=== PATIENT | female | born 1985 | race Caucasian/White ===

== ENCOUNTER 2017-01-03 16:57 | Emergency (ER) | payer OTHER ==
[2017-01-03] MEDS ORDERED: Acetaminophen 500 MG TAB ONE (17:19)
[2017-01-03 17:48] LABS: Anion Gap 13 mmol/L (10-20); BUN (Urea Nitrogen) 8 mg/dL (7.0-18.7); Calc. Creatinine Clearance 0 mL/min (70-130); Calcium 9.1 mg/dL (7.8-10.44); Carbon Dioxide 23 mmol/L (22-29); Chloride 105 mmol/L (98-107); Estimated GFR-MDRD Greater than 90; Magnesium 1.8 mg/dL (1.6-2.6)
--- NOTE | 2017-01-03 19:36 | ULT ---
BILATERAL LOWER EXTREMITY VENOUS DUPLEX EXAM: 01/03/17 HISTORY: Bilateral lower leg pain. Real time color doppler evaluation in the right and left lower extremities was performed from groin to calf. This included evaluation of the common femoral, superficial, and profunda femoral, saphenou s, popliteal, and trifurcation veins. This shows a patent deep venous systems bilaterally. There is normal compressibility and augmentation. There is no evidence of DVT. IMPRESSION: No evidence of DVT of either lower extremity. POS: [facility]
== END 2017-01-03 18:57 | disposition home or self-care (01) ==
LOC: SCSER 16:57
DX: O99.89 Other specified diseases and conditions complicating pregnancy, childbirth and the puerperium (principal); M79.652 Pain in left thigh; M79.651 Pain in right thigh; M79.605 Pain in left leg; M79.604 Pain in right leg; O99.342 Other mental disorders complicating pregnancy, second trimester; F41.9 Anxiety disorder, unspecified; F32.9 Major depressive disorder, single episode, unspecified; M19.90 Unspecified osteoarthritis, unspecified site; Z3A.16 16 weeks gestation of pregnancy
CPT/HCPCS: 80048; 83735; 85652; 86140; 93970

== ENCOUNTER 2017-01-10 10:24 | Outpatient (CLI) | payer OTHER ==
--- NOTE | 2017-01-10 15:04 | ULT ---
OB ULTRASOUND: Date: 01/10/17 HISTORY: patient. Evaluate for size and dates. COMPARISON: None. TECHNIQUE: Sagittal and transverse imaging of gravid uterus performed. FINDINGS: There is a posterior placenta. On the initial images, there appears to be complete previa with the p lacenta obscuring the inner cervical os. As the patient's bladder continues to distend, while perfor tonie the study, the placenta does not appear to completely cover the os and appears to be a marginal to low-lying placenta. Given variation, continued surveillance is warranted and strongly recommende d with short-term follow-up imaging. Cervical length is 3.85 cm. Single intrauterine gestation with transverse presentation. There are heart tones with a rate of 143 beats/minute. Biometry: BPD: 3.85 cm, 17 weeks/5 days HC: 14.58 cm, 17 weeks/5 days AC: 12.66 cm, 18 weeks/2 days FL: 2.56 cm, 19 weeks/5 days Average age by sonography is 17 weeks/5 days. Estimated weight is 219 gm. Survey: The following structures are adequately demonstrated: Cord insertion, three vessel cord, bladder, c erebellum, lateral ventricle, and stomach. Limited evaluation of the kidneys, spine, lips/nose, and extremities. IMPRESSION: 1. Single intrauterine gestation with heart tones. Average age by sonography is 17 weeks/5 da ys with estimated weight of 219 gm. 2. Complete previa in the initial portion of the examination. As urinary bladder distended, the sanjay centa appears to be marginal to low lying. Given variation in placental location, continued surveill ance with short-term follow-up imaging is recommended. 3. survey as above. CODE T. POS: [facility]
== END 2017-01-10 10:25 | disposition home or self-care (01) ==
LOC: ULT 10:24
PROVIDERS: ATTEND Family Medicine
DX: Z33.1 Pregnant state, incidental (principal); N32.89 Other specified disorders of bladder
CPT/HCPCS: 76805

== ENCOUNTER 2017-02-14 09:47 | Outpatient (CLI) | payer OTHER ==
--- NOTE | 2017-02-14 12:47 | ULT ---
ULTRASOUND OBSTETRICAL COMPLETE: DATE: 02-14-17 HISTORY: 31-year-old female in 2nd trimester of . Follow up low lying placenta or placenta previa. COMPARISON: Ultrasound, 01-10-17. FINDINGS: number: Gray lie: Cephalic Maternal cervix: At least 3.5 cm long and closed Placenta: Posterior and low lying. No placenta previa. Amniotic fluid volume: 15.5 cm heart rate: 141 bpm The following anatomy is visualized, with no evidence of anomalies: Bladder, bilateral kidneys, lateral ventricles, cerebellum, stomach, cord insertion, posterior fossa, and nose and lips. The rest of the anatomy was demonstrated on the previous ultrasound of 01-10-17. biometry: Head circumference (HC): 20.0 cm 22 w 1 d Biparietal diameter (BPD): 5.3 cm 22 w 0 d Abdominal circumference (AC): 18.9 cm 23 w 4 d Femur length (FL): 4.0 cm 23 w 0 d Average ultrasound age (AUA): 22 w 3 d Estimated date of delivery (MAYRA): 06-17-17 Last menstrual period (LMP): 17 Gestational age by LMP: 22 w 6 d Estimated weight (EFW): 569g +/- 84g (1 lb. 4 oz. +/- 3 oz.) IMPRESSION: 1. Live late second trimester intrauterine gestation. 2. Estimated gestational age of 22 weeks, 3 days. 3. Cephalic lie. 4. No placenta previa. TASHI Veliz POS: [facility]
== END 2017-02-14 09:48 | disposition home or self-care (01) ==
LOC: ULT 09:47
PROVIDERS: ATTEND Family Medicine
DX: Z33.1 Pregnant state, incidental (principal); Z3A.22 22 weeks gestation of pregnancy; O32.9XX0 Maternal care for malpresentation of fetus, unspecified, not applicable or unspecified
CPT/HCPCS: 76805

== ENCOUNTER 2017-05-31 19:30 | Day surgery (SDC) | payer OTHER ==
[2017-05-31 20:01] VITALS: BMI 36.6
--- NOTE | 2017-06-01 06:49 | PRG ---
DATE OF SERVICE: 05/31/2017 PRIMARY RAILROAD POLICE: Dr. Roxie Hernandez. CHIEF COMPLAINT: Abdominal pain. HISTORY OF PRESENT ILLNESS: The patient is a 32-year-old female with an intrauterine at 37 weeks and 4 days, who reports abdominal pains over the last 24 hours with increasing intensity over the last couple hours, occurring about every 5 minutes. Patient denies any leaking fluid. She does report she had a little bit of bloody show yesterday and has had some diarrhea. She denies any recent illness or fever. She does report a cough at home over the last couple days with her and her daughter. The patient reports that her last ended in a successful vaginal at around 39 weeks. She reports that she was last seen by Dr. Hernandez on Friday and was 1 cm dilated, 40% efface d. PAST MEDICAL HISTORY: Significant for history of neurocardiogenic syncope that has been dormant or w ithout symptoms for the last several years and unexplained infertility. PAST SURGICAL HISTORY: Cholecystectomy and tubes placed and adenoids removed at age 7. SOCIAL HISTORY: Denies drug, alcohol, or tobacco use. She is a hardware engineer here in the community. ALLERGIES: No known drug allergies. MEDICATIONS: vitamins. OB LABS: One hour Glucola 115. Hepatitis B surface antigen negative. HIV nonreactive in the first and third trimester. She is rubella immune, GBS negative. Blood type is A positive with a negative antibody screen. REVIEW OF SYSTEMS: The patient denies fever, headache, chest pain, shortness of breath, reports some minimal nausea. Denies vomiting. Reports cough. Reports diarrhea. Denies constipation, denies ne w rash. Denies leaking fluid. Denies urinary urgency or frequency. She reports a pain in her lower back with her contractions and some in her upper abdomen. She does report some baseline abdominal p ain consistent with ligament pain, but is able to distinguish that from her uterine contractions. PHYSICAL EXAMINATION: VITAL SIGNS: Blood pressure is 132/82, heart rate of 85, respiratory 18, and temperature 98.1. GENERAL: She appears to be tearful at first encounter. When asked what the matter was she reported that she was frustrated that she was not further along then she had hoped. She otherwise in no acute distress. She is alert and oriented, cooperative, pleasant to interact with. HEENT: Normocephalic, atraumatic. LUNGS: Clear to auscultation bilaterally. HEART: Regular rate and rhythm. ABDOMEN: Soft. She does have some tenderness to deviation of the uterus in the upper right region o f the abdomen and the region or the cornua of the uterus which is mild. Otherwise abdomen soft. No suprapubic tenderness to palpation. No CVA tenderness. No paravertebral tenderness, no vertebral te nderness. EXTREMITIES: Nontender, nonedematous. Cervical exam per nursing staff is 1.5 cm with 40% effacement, -2 station. heart tracing perfo rmed for abdominal pain and a threatened labor. Baseline is noted to be in the 140s with moderate lo ng-term variability, positive accelerations, no decelerations. The tocometer has some irritability, but unable to product picker significant contraction pattern. ASSESSMENT AND PLAN: The patient is a 32-year-old female with an intrauterine at 37 weeks and 4 days with uterine contractions without labor. The patient was given the option to remain for a couple of hours to be rechecked or to return home with reassurance that her baby is looking go od at this time to monitor progress of her labor on her own. The patient has opted to return home. She has been given term labor precautions and will keep her appointment with Dr. Hernadnez as scheduled.
== END 2017-05-31 20:50 | disposition home or self-care (01) ==
LOC: L&D/OP 19:30
PROVIDERS: ATTEND Family Medicine
DX: O47.1 False labor at or after 37 completed weeks of gestation (principal); Z79.899 Other long term (current) drug therapy; Z3A.37 37 weeks gestation of pregnancy; Z86.32 Personal history of gestational diabetes
CPT/HCPCS: 99282

== ENCOUNTER 2017-06-11 20:40 | Inpatient (IN) | payer OTHER ==
[2017-06-11 21:24] VITALS: BMI 36.6
[2017-06-11] MEDS ORDERED: LR / Pitocin 40 units/1000 ml 1,000 ML IV PRN (21:30)
[2017-06-11] MEDS ORDERED: Lidocaine 1% (PF) 30 ML VIAL SC PRN (21:30)
[2017-06-11] MEDS ORDERED: Meperidine HCl/PF 25 MG/ML VIAL IM/IV PRN (21:30)
[2017-06-11] MEDS ORDERED: HYDROcodone/Acetaminophen 5/325 mg Tablet PO PRN (21:30)
[2017-06-11] MEDS ORDERED: Promethazine HCl 25 MG/ML VIAL IM PRN (21:30)
[2017-06-11] MEDS ORDERED: Acetaminophen 500 MG TAB PO PRN (21:30)
[2017-06-11] MEDS ORDERED: Ibuprofen 800 MG TAB PO PRN (21:30)
[2017-06-11] MEDS ORDERED: Ondansetron HCl/PF 4 MG/2 ML Vial IVP PRN (21:30)
[2017-06-11 21:52] LABS: Hemoglobin 12.3 g/dL (12.0-16.0); Mean Corpuscular HGB CONC 33.5 g/dL (32.0-36.0); Mean Corpuscular Hemoglobin 27.6 pg (27.0-31.0); Mean Corpuscular Volume 82.3 fl (81.0-99.0); Mean Platelet Volume 7.7 fL (7.4-10.4); Platelet Count 344 thou/uL (130-400); RBC Distribution Width 12.4 % (11.5-14.5); Red Blood Cell (RBC) Count 4.46 mill/uL (4.20-5.40); White Blood Cell (WBC) Count 12.1 thou/uL (4.8-10.8)
[2017-06-11 22:30] LABS: Syphilis Antibody Nonreactive (Nonreactive); Syphilis Antibody Index 0.04 S/CO (<1.00 Non-Reactive)
[2017-06-12 00:16] LABS: HBSAg Index 0.17 S/CO (0-0.99); Hep B Surf Ag Non-Reactive S/CO (NonReactive)
[2017-06-12] MEDS ORDERED: Diprivan 0 ML ONE (09:00)
[2017-06-12] MEDS ORDERED: LR 500 ML/Oxytocin 10 units 500 ML IVPB SCH (18:00)
[2017-06-12] MEDS ORDERED: Preparation H Ointment 28 GM TUBE PR PRN (21:22)
[2017-06-12] MEDS ORDERED: LR / Pitocin 40 units/1000 ml 1,000 ML IV SCH (21:22)
[2017-06-12] MEDS ORDERED: Lanolin Ointment 7 GM TUBE TOP PRN (21:22)
[2017-06-12] MEDS ORDERED: Milk Of Magnesia 30 ML UDCUP PO PRN (21:22)
[2017-06-12] MEDS ORDERED: Benzocaine/Menthol 20-0.5% 60 ML CAN TOP PRN (21:22)
[2017-06-12] MEDS ORDERED: Bisacodyl 10 MG SUPP PR PRN (21:22)
[2017-06-12] MEDS ORDERED: Acetaminophen 500 MG TAB PO PRN (22:06)
[2017-06-12] MEDS: HYDROcodone/Acetaminophen 5/325 mg Tablet PO PRN (22:27)
[2017-06-13] MEDS: Ibuprofen 800 MG TAB PO SCH ×3 (00:21→14:13)
[2017-06-13] MEDS: Docusate Calcium (SURFAK) 240 MG CAP PO SCH ×2 (00:21→08:40)
--- NOTE | 2017-06-13 01:22 | OP ---
DATE OF DELIVERY: 06/12/2017 PREOPERATIVE DIAGNOSIS: Term intrauterine . POSTOPERATIVE DIAGNOSES: Term intrauterine as well as mild shoulder dystocia and a first d egree perineal laceration. PROCEDURE PERFORMED: Normal spontaneous vaginal delivery, reduction of shoulder dystocia and lacerat ion repair. SURGEON: Roxie Hernandez M.D. ANESTHESIA: Local. ESTIMATED BLOOD LOSS: 350 mL. BRIEF DELIVERY SUMMARY: This is a 32-year-old G4, P1-0-2-1 at 39+ weeks. She presented for inductio n of labor, which was accomplished through a Cook's balloon and artificial rupture of membranes. She did not receive Pitocin during labor. She progressed to complete and pushing. She delivered a live male infant, head RICH. There was no nuchal cord. She did have a mild shoulder dystocia, which was relieved with [place] maneuver. The shoulders and body then easily followed and the infant was sanjay john on mother's abdomen. Apgars were 9 at 1 minute and 9 at 5 minutes. Cord blood was collec diego and sent for analysis. Placenta delivered spontaneously and intact with a 3-vessel umbilical cor d. There was a first degree perineal laceration, which was repaired in standard running fashion usin g 2-0 Vicryl suture under local anesthesia with excellent hemostasis. Mom and baby were left with e nurse in excellent condition attempting to breast feed.
[2017-06-13] MEDS: HYDROcodone/Acetaminophen 5/325 mg Tablet PO PRN ×2 (02:22→08:40)
--- NOTE | 2017-06-13 07:22 | PDOC.PP ---
Post Progress Note Post Day #: 1 Subjective: Feeling well, no pain, BF well, lochia normal PO intake tolerated: yes Flatus: yes Ambulation: yes Vital Signs (12 hours) Temp Pulse Resp BP 06/13/17 04:00 98.7 F 76 16 125/62 06/13/17 00:00 97.7 F 94 16 132/77 06/12/17 22:25 76 140/73 06/12/17 21:25 97.7 F 85 18 132/76 Weight Weight 220 lb - Physical Examination General: NAD Cardiovascular: no m/r/g, RRR Respiratory: clear to auscultation bilaterally, non-labored breathing Abdominal: + bowel sounds, lochia, no distention, appropriately TTP Psychiatric: A&Ox3, normal affect Result Diagrams: 06/11/17 21:30 Additional Labs: Post Labs Hep Bs Antigen Non-Reactive S/CO (NonReactive) 06/11/17 21:30 (1) Vaginal delivery Code(s): O80 - ENCOUNTER FOR FULL-TERM UNCOMPLICATED DELIVERY Status: Acute - Assessment/Plan PPD #1, doing well. Routine PP care. D/C home at 24 hours post-delivery
[2017-06-13] MEDS: Ferrous Sulfate 325 MG TAB PO SCH ×2 (08:39→17:15)
[2017-06-13 17:29] VITALS: BP 117/56; TEMP 98.1
== END 2017-06-13 19:40 | disposition home or self-care (01) | DRG 775 ==
LOC: L&D 20:40 → L&D-LIB 21:09 → L&D 06-12 10:00 → 3SW 06-12 22:04
PROVIDERS: ADMIT Family Medicine; ATTEND Family Medicine
PROC: 10E0XZZ Delivery of Products of Conception, External Approach (ICD-10-PCS; principal; 2017-06-12)
PROC: 0HQ9XZZ Repair Perineum Skin, External Approach (ICD-10-PCS; 2017-06-12)
PROC: 10907ZC Drainage of Amniotic Fluid, Therapeutic from Products of Conception, Via Natural or Artificial Opening (ICD-10-PCS; 2017-06-12)
DX: O70.0 First degree perineal laceration during delivery (principal); O77.0 Labor and delivery complicated by meconium in amniotic fluid; Z37.0 Single live birth; Z3A.39 39 weeks gestation of pregnancy
CPT/HCPCS: 85027; 86780; 87340; C1726; J2001; J2704

== ENCOUNTER 2019-06-09 20:02 | Inpatient (IN) | payer BC, OTHER ==
--- NOTE | 2019-06-09 20:48 | RAD ---
RADIOGRAPH CHEST 1 VIEW: DATE: 06/09/2019 HISTORY: 34 year old female with cough, dyspnea, and body aches FINDINGS: The visualized lung dias are clear. The cardiomediastinal silhouette and hilar shadows are normal. The lateral costophrenic angles are sharp. The osseous structures appear normal. There is no pneumothorax. IMPRESSION: Negative.
[2019-06-09 21:04] LABS: Mean Corpuscular HGB CONC 34.3 g/dL (32.0-36.0); Mean Corpuscular Hemoglobin 29.8 pg (27.0-31.0); Mean Corpuscular Volume 86.9 fL (78.0-98.0); Mean Platelet Volume 8.2 fL (7.4-10.4); Platelet Count 301 thou/uL (130-400); RBC Distribution Width 11.7 % (11.5-14.5); Red Blood Cell (RBC) Count 5.04 mill/uL (4.20-5.40); White Blood Cell (WBC) Count 14.3 thou/uL (4.8-10.8)
[2019-06-09 21:24] LABS: Band 4 % (5-11); Lymphocytes 8 % (21-51); MDiff Complete? YES; Monocytes 3 % (0-10); Neutrophil 85 % (42-75); Platelet Morphology Comment Appears Adequate; RBC Morphology Normal
[2019-06-09 21:26] LABS: ALT (SGPT) 57 U/L (8-55); AST (SGOT) 52 U/L (5-34); Albumin 4.3 g/dL (3.5-5.0); Alkaline Phosphatase 109 U/L (40-110); Anion Gap 13 mmol/L (10-20); BUN (Urea Nitrogen) 15 mg/dL (7.0-18.7); Bilirubin, Total 0.4 mg/dL (0.2-1.2); Calc. Creatinine Clearance 0 mL/min (70-130); Carbon Dioxide 22 mmol/L (22-29); Chloride 104 mmol/L (98-107); Estimated GFR-MDRD 71; Globulin 3.1 g/dL (2.4-3.5); Glucose 97 mg/dL (70-105); Protein, Total 7.4 g/dL (6.0-8.3); Sodium 135 mmol/L (136-145)
[2019-06-09 22:03] LABS: BHCG - Serum Negative (NEGATIVE); Pregs Control Background? CLEAR/WHITE (CLR/WHITE); Pregs Control Bar Appear? YES (CONTROL BAR)
[2019-06-09] MEDS ORDERED: Acetaminophen 500 MG TAB ONE (22:06)
[2019-06-09] MEDS ORDERED: Morphine 4 MG/ML VIAL ONE (22:06)
[2019-06-09] MEDS ORDERED: cefTRIAXone\\ROCEPHIN 2 GM VIAL ONE (22:06)
[2019-06-09] MEDS ORDERED: Azithromycin 500 MG VIAL ONE (22:08)
[2019-06-09] MEDS ORDERED: diphenhydrAMINE 50 MG/ML VIAL ONE (22:51)
[2019-06-09] MEDS ORDERED: Ondansetron PF 4 MG/2 ML Vial ONE (22:51)
[2019-06-09 23:01] LABS: Bilirubin Negative (Negative); Blood, Urine Negative (Negative); Clarity Clear (Clear); Glucose, Urine (Dipstick) Normal (Negative); Leukocyte Negative Leu/uL (Negative); Nitrite Negative (Negative); Protein, Urine (Dipstick) Negative (Neg-Trace); Urobilinogen Normal mg/dL (Less than 2)
[2019-06-09] MEDS ORDERED: Lorazepam 2 MG/ML VIAL ONE (23:08)
[2019-06-10] MEDS ORDERED: Senokot S 8.6-50 MG TAB PO PRN (00:31)
[2019-06-10] MEDS ORDERED: Azithromycin 500 MG in Sodium Chloride 0.9% 250 ML 250 ML IVPB SCH ×2 (00:45→12:00)
[2019-06-10] MEDS ORDERED: cefTRIAXone\\ROCEPHIN 1 GM in Sodium Chloride 0.9% 100 ML IVPB SCH ×2 (00:45→12:00)
[2019-06-10 00:53] LABS: Lactic Acid 1.9 mmol/L (0.5-2.2)
[2019-06-10 01:02] VITALS: BMI 35.7
[2019-06-10] MEDS ORDERED: Famotidine/PF 20 mg/2ml Vial SLOW IVP SCH (02:00)
[2019-06-10] MEDS: Sodium Chloride 0.9% 1,000 ML IV SCH ×3 (02:02→20:14)
--- NOTE | 2019-06-10 03:53 | HP ---
CHIEF COMPLAINT: Body aches and pains and fever. HISTORY OF PRESENT ILLNESS: The patient is a 34-year-old female with no past medical history, who presents to the hospital with complaints of a fever of 104.4, joint pains, cough, and chills x1 day. The patient stated that for the past couple of days, she has been running a low-grade fever and has been having a headache. She stated that about a week ago, she took her 2-year-old and 4-year-old to the PCPs office because they had some rhinorrhea and were diagnosed with some just upper respiratory infection. The patient states that she denies any abdominal pain, nausea, vomiting, or diarrhea. She denies any sick contacts either. She is a stay at home mom. Her does work for the oil field and has not traveled anywhere, except just going to work. According to her, she denies him being in contact with any sick patients or sick employees. PAST MEDICAL HISTORY: None. PAST SURGICAL HISTORY: She has had a cholecystectomy and adenoids removed. ALLERGIES: NO KNOWN DRUG ALLERGIES. MEDICATIONS: She only takes a multivitamin and vitamin C. SOCIAL HISTORY: She denies any alcohol use, drug use, or smoking history. She is a full code. Lives with her . FAMILY HISTORY: Her father was murdered. Her mother has a history of thyroid problems. REVIEW OF SYSTEMS: All negative, except for the ones mentioned above in the HPI. PHYSICAL EXAMINATION: VITAL SIGNS: As of the following; temperature of 97.6, pulse 112, respiratory rate 24, oxygen saturation 98% on room air and blood pressure 100/55. GENERAL: She is awake, alert, and oriented x3. Does not appear in distress, however, appears ill. CARDIOVASCULAR: S1, S2 present. Tachycardia. LUNGS: Clear to auscultation. No rhonchi or wheezes noted. ABDOMEN: Soft. Mild pain upon palpation to epigastric area, right upper quadrant and left upper quadrant. EXTREMITIES: No edema. Pedal pulses are present x2. NEUROVASCULAR: No focal deficits noted. SKIN: No cuts, lesions, or bruises noted. LABORATORY RESULTS: WBCs of 14.3, hemoglobin of 15.0, hematocrit of 43.8, platelets of 301, bands of 4. Chemistry; sodium of 135, potassium of 4.0, BUN of 15, creatinine 0.92, AST of 52, ALT of 57. Initial lactate was 2.4 and then was 1.0. test was negative. Urine test also negative. She did have a chest x-ray, which did not indicate any acute abnormalities. ASSESSMENT AND PLAN: The patient is a very pleasant 34-year-old female, who presents to the hospital with fevers, body aches and pains. 1. Sepsis, however, unclear etiology at this time. It could be viral versus bacterial. Given her symptoms, she was tested for COVID. Initially influenza was negative. We will go ahead and do a respiratory viral panel, which also indicates human metapneumovirus. I do not think this is a COVID patient. We will start the patient on some antibiotics with some Levaquin; however, I do not think she really requires that. She was given azithromycin and ceftriaxone in the ER. She was given a couple liters of normal saline for tachycardia and for elevation of lactic acid. Her tachycardia is improving. 2. Elevated LFTs, mild. She is obese. We will check hepatitis panel. She may require a right upper quadrant ultrasound if her LFTs do not improve. 3. Sinus tachycardia. Again, this is most likely from her fever and her underlying viral pneumonia. We will continue supportive care. 4. Deep venous thrombosis prophylaxis. We will put the patient on some SCDs. Job ID: [id number]
[2019-06-10 04:32] LABS: Hemoglobin 13.3 g/dL (12.0-16.0); Mean Corpuscular HGB CONC 34.5 g/dL (32.0-36.0); Mean Corpuscular Hemoglobin 30.5 pg (27.0-31.0); Mean Corpuscular Volume 88.4 fL (78.0-98.0); Mean Platelet Volume 8.3 fL (7.4-10.4); Platelet Count 229 thou/uL (130-400); RBC Distribution Width 11.8 % (11.5-14.5); Red Blood Cell (RBC) Count 4.36 mill/uL (4.20-5.40); White Blood Cell (WBC) Count 17.6 thou/uL (4.8-10.8)
[2019-06-10 04:56] LABS: ALT (SGPT) 61 U/L (8-55); AST (SGOT) 45 U/L (5-34); Albumin 3.2 g/dL (3.5-5.0); Alkaline Phosphatase 78 U/L (40-110); Anion Gap 12 mmol/L (10-20); BUN (Urea Nitrogen) 10 mg/dL (7.0-18.7); Bilirubin, Total 0.6 mg/dL (0.2-1.2); Calc. Creatinine Clearance 164 mL/min (70-130); Calcium 7.4 mg/dL (7.8-10.44); Carbon Dioxide 19 mmol/L (22-29); Chloride 110 mmol/L (98-107); Estimated GFR-MDRD 86; Globulin 2.2 g/dL (2.4-3.5); Glucose 116 mg/dL (70-105); Protein, Total 5.4 g/dL (6.0-8.3); Sodium 137 mmol/L (136-145)
[2019-06-10 05:04] LABS: Band 11 % (5-11); Lymphocytes 6 % (21-51); MDiff Complete? YES; Monocytes 4 % (0-10); Neutrophil 79 % (42-75); Platelet Morphology Comment Appears Adequate; RBC Morphology Normal
[2019-06-10 05:09] LABS: HBCM Index 0.06 S/CO (0-0.79); HBSAg Index 0.27 S/CO (0-0.99); Hep A IgM AB Non-Reactive (NonReactive); Hep A IgM S/CO 0.21 S/CO (0-0.79); Hep B Surf Ag Non-Reactive S/CO (NonReactive); Hep C IgG Ab Non-Reactive (NonReactive); Hep C Index 0.16 S/CO (0-0.79); Hepatitis B Core IgM Abs Non-Reactive (NonReactive)
[2019-06-10] MEDS: Acetaminophen 325 MG TAB PO PRN ×2 (08:55→16:12)
[2019-06-10] MEDS: Benzonatate 100 MG CAP PO PRN ×3 (08:56→16:12)
[2019-06-10] MEDS: guaiFENesin ER 600 MG TAB PO SCH ×2 (08:56→20:12)
[2019-06-10] MEDS: Famotidine/PF 20 mg/2ml Vial SLOW IVP SCH ×2 (08:56→20:12)
[2019-06-10] MEDS: Enoxaparin Sodium 40 MG/0.4 ML SYRINGE SC SCH ×2 (08:56→09:01)
[2019-06-10] MEDS ORDERED: Ibuprofen 600 MG TAB PO PRN (11:08)
--- NOTE | 2019-06-10 11:16 | PDOC.HOSPP ---
- Subjective Encounter Date: 06/10/19 Encounter Time: 11:14 Subjective: Ms. Perez was seen today in follow-up of Viral syndrome with sepsis. She notes some body aches, and she feels out of breath with she talks for a long period of time. She does not appear toxic. - Objective Vital Signs & Weight: Vital Signs (12 hours) Temp Pulse Resp BP BP Pulse Ox 06/10/19 07:30 97.1 F L 93 18 115/60 96 06/10/19 04:05 97.9 F 99 20 115/68 99 06/10/19 02:50 98 06/10/19 00:57 97.6 F 112 H 24 H 100/55 L 98 Weight Weight 221 lb 9.6 oz Result Diagrams: 06/10/19 04:15 06/10/19 04:15 Hospitalist ROS - Medication Medications: Active Medications Generic Name Dose Route Start Last Admin Trade Name Freq PRN Reason Stop Dose Admin Acetaminophen 650 mg 06/10/19 00:31 06/10/19 08:55 Tylenol PO 650 mg Q4H PRN Administration Headache/Fever/Mild Pain (1-3) Benzonatate 100 mg 06/10/19 07:51 06/10/19 08:56 Tessalon PO 100 mg Q4H PRN Administration Cough Enoxaparin Sodium 40 mg 06/10/19 09:00 06/10/19 09:01 Lovenox SC Not Given 0900 CHUCK Famotidine 20 mg 06/10/19 09:00 06/10/19 08:56 Pepcid SLOW IVP 20 mg BID CHUCK Administration Guaifenesin 600 mg 06/10/19 09:00 06/10/19 08:56 Mucinex PO 600 mg Q12HR CHUCK Administration Sodium Chloride 1,000 mls @ 100 mls/hr 06/10/19 00:45 06/10/19 08:57 Normal Saline 0.9% IV 1,000 mls .Q10H CHUCK Administration Sodium Chloride 10 ml 06/10/19 09:00 06/10/19 08:56 Flush - Normal Saline IVF 10 ml Q12HR CHUCK Administration - Exam General Appearance: NAD Heart: RRR, no murmur, no gallops, no rubs, normal peripheral pulses Respiratory: CTAB, no wheezes, no rales, no ronchi, normal chest expansion, no tachypnea Gastrointestinal: soft, non-tender, non-distended, normal bowel sounds, no palpable masses, no hepatomegaly Extremities: no cyanosis, no edema Hosp A/P (1) Viral syndrome Status: Acute (2) Sepsis Code(s): A41.9 - SEPSIS, UNSPECIFIED ORGANISM Status: Acute - Plan * Viral Syndrome- her viral panel is positive for Human Metapneumovirus * This is likely the cuase of her symptoms * COVID screen is still pending * Will also await blood culture results for bacterial pathogens, given her elevated WBC count * Continue empiric Levaquin * Re-check CBC in the AM
[2019-06-10] MEDS ORDERED: traMADol HCl 50 MG TAB PO PRN (16:40)
--- NOTE | 2019-06-10 16:47 | PDOC.EVN ---
Event Note - Event Note Event Note: Ms. Perez notes swelling and pain in her left breast. She says she also notes redness as well. This started today. She is currently lactating, and says that her son normally takes the breast about twice a day. She fed him last night around 6pm before coming to the hospital. She pumped this afternoon, and expressed about 2 oz. She says the pain has continued despite pumping. On exam the left breast is swollen , and there is an oval area approximately 3 X 5 cm on the medical aspect which is erythematous, and firm, but not fluctuant Probable Mastitis- will add Clindamycin and re-evaluate in the AM, if the area persists in firmness/induration, may need an ultrasound to rule out abscess. This could be contributing to her fever, and sepsis picture as well.
[2019-06-10] MEDS ORDERED: Saccharomyces boulardii 250 MG CAP PO SCH (17:15)
[2019-06-10] MEDS: Clindamycin/D5W 600 MG in Premix Bag 1 BAG IVPB SCH ×2 (18:37→23:58)
[2019-06-10] MEDS: Temazepam 15 MG CAP PO PRN (20:12)
[2019-06-10] MEDS: Ondansetron PF 4 MG/2 ML Vial IVP PRN (20:12)
[2019-06-10] MEDS ORDERED: diphenhydrAMINE 25 MG CAP PO SCH (23:30)
[2019-06-11 04:29] LABS: #Eosinphils 0.4 thou/uL (0.0-0.7); #Lymphocytes 2.9 thou/uL (1.20-3.40); #Monocytes 0.9 thou/uL (0.11-0.59); %Basophils 0.3 % (0.0-1.0); %Eosinophils 2.8 % (0.0-10.0); %Lymphocytes 18.8 % (21.0-51.0); %Monocytes 5.8 % (0.0-10.0); %Neutrophils 72.4 % (42.0-75.0); Mean Corpuscular HGB CONC 33.7 g/dL (32.0-36.0); Mean Corpuscular Hemoglobin 30.1 pg (27.0-31.0); Mean Corpuscular Volume 89.3 fL (78.0-98.0); Platelet Count 250 thou/uL (130-400); RBC Distribution Width 11.9 % (11.5-14.5); Red Blood Cell (RBC) Count 4.32 mill/uL (4.20-5.40); White Blood Cell (WBC) Count 15.2 thou/uL (4.8-10.8)
[2019-06-11] MEDS: Clindamycin/D5W 600 MG in Premix Bag 1 BAG IVPB SCH ×4 (05:13→23:28)
[2019-06-11] MEDS: Sodium Chloride 0.9% 1,000 ML IV SCH ×3 (05:15→23:29)
[2019-06-11] MEDS: Enoxaparin Sodium 40 MG/0.4 ML SYRINGE SC SCH (09:46)
[2019-06-11] MEDS: Famotidine/PF 20 mg/2ml Vial SLOW IVP SCH ×2 (09:47→20:47)
[2019-06-11] MEDS: guaiFENesin ER 600 MG TAB PO SCH ×2 (09:47→20:47)
[2019-06-11] MEDS: Saccharomyces boulardii 250 MG CAP PO SCH (09:47)
[2019-06-11] MEDS: Acetaminophen 325 MG TAB PO PRN (09:47)
--- NOTE | 2019-06-11 10:30 | PDOC.HOSPP ---
- Subjective Encounter Date: 06/11/19 Encounter Time: 10:28 Subjective: Ms. Perez is overall feeling better, but she notes continued pain in the left breast. She says now she is having trouble expressing milk from the breast. - Objective Vital Signs & Weight: Vital Signs (12 hours) Temp Pulse Resp BP Pulse Ox 06/11/19 04:00 98.5 F 96 18 114/58 L 97 Weight Weight 221 lb 9.6 oz Result Diagrams: 06/11/19 04:10 06/10/19 04:15 Hospitalist ROS - Medication Medications: Active Medications Generic Name Dose Route Start Last Admin Trade Name Freq PRN Reason Stop Dose Admin Acetaminophen 650 mg 06/10/19 00:31 06/11/19 09:47 Tylenol PO 650 mg Q4H PRN Administration Headache/Fever/Mild Pain (1-3) Benzonatate 100 mg 06/10/19 07:51 06/10/19 16:12 Tessalon PO 100 mg Q4H PRN Administration Cough Enoxaparin Sodium 40 mg 06/10/19 09:00 06/11/19 09:46 Lovenox SC Not Given 09 CHUCK Famotidine 20 mg 06/10/19 09:00 06/11/19 09:47 Pepcid SLOW IVP 20 mg BID CHUCK Administration Guaifenesin 600 mg 06/10/19 09:00 06/11/19 09:47 Mucinex PO 600 mg Q12HR CHUCK Administration Sodium Chloride 1,000 mls @ 100 mls/hr 06/10/19 00:45 06/11/19 05:15 Normal Saline 0.9% IV 1,000 mls .Q10H CHUCK Administration Levofloxacin 500 mg/ Device 100 mls @ 100 mls/hr 06/10/19 12:00 06/10/19 11: 40 IVPB 100 mls Q24HR CHUCK Administration Clindamycin Phosphate/Dextrose 50 mls @ 100 mls/hr 06/10/19 18:00 06/11/19 05 :13 600 mg/ Device IVPB 50 mls Q6HR CHUCK Administration Ibuprofen 600 mg 06/10/19 11:08 06/10/19 11:40 Motrin PO 600 mg Q6H PRN Administration Pain Ondansetron HCl 4 mg 06/10/19 00:31 06/10/19 20:12 Zofran IVP 4 mg Q6H PRN Administration Nausea/Vomiting Saccharomyces Boulardii 250 mg 06/11/19 09:00 06/11/19 09:47 Florastor PO 250 mg DAILY CHUCK Administration Sodium Chloride 10 ml 06/10/19 09:00 06/11/19 09:48 Flush - Normal Saline IVF 10 ml Q12HR CHUCK Administration Temazepam 15 mg 06/10/19 16:39 06/10/19 20:12 Restoril PO 15 mg HSPRN PRN Administration Insomnia Tramadol HCl 50 mg 06/10/19 16:40 06/10/19 18:36 Ultram PO 50 mg Q6H PRN Administration Moderate Pain (4-6) - Exam Eye: PERRL Heart: RRR, no murmur, no gallops, no rubs, normal peripheral pulses Respiratory: CTAB, no wheezes, no rales, no ronchi, normal chest expansion Gastrointestinal: soft, non-tender, non-distended, normal bowel sounds Extremities: no cyanosis, no clubbing, no edema Skin - other findings: Left breast is enlarged, area of erythema & induration has increased Hosp A/P (1) Mastitis, left, acute Code(s): N61.0 - MASTITIS WITHOUT ABSCESS Status: Acute (2) Viral syndrome Status: Acute (3) Sepsis Code(s): A41.9 - SEPSIS, UNSPECIFIED ORGANISM Status: Acute - Plan * Acute Mastitis of the left breast- will continue Clindamycin, and will check a Ultrasound to rule out abscess * Viral Syndrome- her viral panel is positive for Human Metapneumovirus and COVID -19 screen was negative * Sepsis syndrome is improving- and she can be transferred off telemetry * Further recommendations pending ultrasound results.
--- NOTE | 2019-06-11 11:30 | ULT ---
Sonogram left breast HISTORY: Left breast pain. Abscess. Breast-feeding. FINDINGS: Evaluation centered at the 10:00 position of the left breast shows dense fibroglandular tis is[place], consistent with . There is a large very irregular shaped area of decreased density with large fingerlike projections ex tending from the periphery. It measures up to 5.3 cm x 3.0 cm length and width by 2.4 cm depth. No solid masses are apparent. IMPRESSION : Large nonencapsulated abscess centered at the 10:00 position of the left breast.
--- NOTE | 2019-06-11 15:32 | PDOC.EVN ---
Event Note - Event Note Event Note: Ultrasound results noted- will consult General Surgery
--- NOTE | 2019-06-11 18:10 | CON ---
DATE OF CONSULTATION: 06/11/2019 CHIEF COMPLAINT: Left breast abscess. HISTORY OF PRESENT ILLNESS: This is a 34-year-old female, who presents with a history of fever and left breast pain, initially ruled out for COVID-19. Her fevers have resolved, admitted to the hospitalist service, on IV antibiotics. Ultrasound shows left breast abscess. She has never had this before. Her child is 2 years old and still . She notes no breakdown of the skin. No history of previous infection, mastitis or abscess. PAST MEDICAL HISTORY: Negative. PAST SURGICAL HISTORY: Cholecystectomy. MEDICATIONS: 1. Multivitamin. 2. Vitamin C. ALLERGIES: NO KNOWN DRUG ALLERGIES. SOCIAL HISTORY: No smoking, alcohol, or other drugs. REVIEW OF SYSTEMS: Ten-system review of systems is otherwise negative unless described above. PHYSICAL EXAMINATION: HEENT: Sclerae anicteric. Oropharynx clear. NECK: No lymphadenopathy. CHEST: Clear. HEART: Regular rate. ABDOMEN: Soft, nontender, and nondistended. BREASTS: Examination of breast reveals a left breast fluctuant mass. There is redness to the skin. There is mild axillary lymphadenopathy. DIAGNOSTIC DATA: Ultrasound shows left breast abscess. ASSESSMENT: Left breast abscess. PLAN: Incision and drainage of left breast in the operating room tomorrow. Risks, benefits, and alternatives discussed. She gives consent. We will do this tomorrow. Job ID: [id number]
[2019-06-11] MEDS: Temazepam 15 MG CAP PO PRN (20:54)
[2019-06-12] MEDS: Clindamycin/D5W 600 MG in Premix Bag 1 BAG IVPB SCH ×3 (05:55→18:20)
[2019-06-12] MEDS: guaiFENesin ER 600 MG TAB PO SCH ×2 (08:06→20:13)
[2019-06-12] MEDS: Saccharomyces boulardii 250 MG CAP PO SCH (08:06)
[2019-06-12] MEDS: Famotidine/PF 20 mg/2ml Vial SLOW IVP SCH ×2 (08:06→20:13)
[2019-06-12] MEDS ORDERED: Lidocaine 1% PF 5 ML VIAL ONE (09:59)
[2019-06-12] MEDS ORDERED: PROPOFOL 200 MG/20 ML VIAL ONE (09:59)
[2019-06-12] MEDS ORDERED: Bupivacaine 0.25% HCL 30 ML VIAL ONE (10:06)
[2019-06-12] MEDS ORDERED: Lidocaine 2% w/Epinephrine 1:200K 20 ML VIAL ONE (10:06)
[2019-06-12] MEDS ORDERED: Midazolam HCl 2 mg/2 ml Vial ONE (10:12)
[2019-06-12] MEDS ORDERED: Fentanyl 100 MCG/2 ML VIAL ONE ×2 (10:12→11:00)
[2019-06-12] MEDS ORDERED: Morphine 2 MG/ML SYRINGE SLOW IVP PRN (10:58)
[2019-06-12] MEDS ORDERED: HYDROcodone/Acetaminophen 7.5/325 mg Tablet PO PRN (10:58)
[2019-06-12] MEDS ORDERED: Morphine 4 MG/ML VIAL SLOW IVP PRN (10:58)
[2019-06-12] MEDS ORDERED: Ondansetron HCl/PF 4 MG/2 ML Vial IVP PRN (11:02)
[2019-06-12] MEDS ORDERED: Promethazine HCl 25 MG/ML VIAL IM PRN (11:02)
[2019-06-12] MEDS ORDERED: Promethazine HCl 25 MG/ML VIAL SLOW IVP PRN (11:02)
--- NOTE | 2019-06-12 11:09 | OP ---
DATE OF PROCEDURE: 06/12/2019 PREOPERATIVE DIAGNOSIS: Left breast abscess. POSTOPERATIVE DIAGNOSIS: Left breast abscess. PROCEDURES: Mastotomy. Incision and drainage of deep left breast abscess. ANESTHESIA: General. ESTIMATED BLOOD LOSS: Minimal. COMPLICATIONS: None. SPECIMEN: Cultures taken for anaerobes and aerobes. TECHNIQUE: The patient was taken to the operating room and laid supine on the operating room table. After general anesthetic was obtained, the left breast was prepped and draped in a sterile fashion. Local anesthetic infiltrated over the fluctuant portion. An elliptical incision was used to ellipse out some skin and subcutaneous fat. Abscess cavity was entered. Cultures were taken. The wound was irrigated and packed using half-inch iodoform gauze and sterile dressings. The patient was sent to Recovery in stable condition. All instrument counts, needle counts, and lap counts are correct. Job ID: [id number]
[2019-06-12] MEDS ORDERED: HYDROcodone/Acetaminophen 7.5/325 mg Tablet ONE (11:31)
[2019-06-12] MEDS: Sodium Chloride 0.9% 1,000 ML IV SCH (13:04)
[2019-06-12] MEDS: HYDROcodone/Acetaminophen 7.5/325 mg Tablet PO PRN (16:49)
--- NOTE | 2019-06-12 18:02 | PDOC.HOSPP ---
- Subjective Encounter Date: 06/12/19 Encounter Time: 16:00 Subjective: had I&D of left breast abscess this am mild pain in her breast, no sob is amb in room - Objective Vital Signs & Weight: Vital Signs (12 hours) Temp Pulse Resp BP Pulse Ox 06/12/19 16:00 97.4 F L 68 17 116/71 98 06/12/19 08:00 98 06/12/19 07:56 98.3 F 76 18 100/64 98 Weight Weight 221 lb 9.6 oz Result Diagrams: 06/11/19 04:10 06/10/19 04:15 Hospitalist ROS - Medication Medications: Active Medications Generic Name Dose Route Start Last Admin Trade Name Freq PRN Reason Stop Dose Admin Acetaminophen 650 mg 06/10/19 00:31 06/11/19 09:47 Tylenol PO 650 mg Q4H PRN Administration Headache/Fever/Mild Pain (1-3) Hydrocodone Bitart/Acetaminophen 1 tab 06/12/19 10:58 06/12/19 16:49 [place] 7.5/325 PO 1 tab Q6H PRN Administration Moderate Pain (4-6) Benzonatate 100 mg 06/10/19 07:51 06/10/19 16:12 Tessalon PO 100 mg Q4H PRN Administration Cough Famotidine 20 mg 06/10/19 09:00 06/12/19 08:06 Pepcid SLOW IVP 20 mg BID CHUCK Administration Guaifenesin 600 mg 06/10/19 09:00 06/12/19 08:06 Mucinex PO 600 mg Q12HR CHUCK Administration Sodium Chloride 1,000 mls @ 100 mls/hr 06/10/19 00:45 06/12/19 13:04 Normal Saline 0.9% IV 1,000 mls .Q10H CHUCK Administration Levofloxacin 500 mg/ Device 100 mls @ 100 mls/hr 06/10/19 12:00 06/12/19 13: 04 IVPB 100 mls Q24HR CHUCK Administration Clindamycin Phosphate/Dextrose 50 mls @ 100 mls/hr 06/10/19 18:00 06/12/19 13 :04 600 mg/ Device IVPB 50 mls Q6HR CHUCK Administration Ondansetron HCl 4 mg 06/10/19 00:31 06/10/19 20:12 Zofran IVP 4 mg Q6H PRN Administration Nausea/Vomiting Saccharomyces Boulardii 250 mg 06/11/19 09:00 06/12/19 08:06 Florastor PO 250 mg DAILY CHUCK Administration Sodium Chloride 10 ml 06/10/19 09:00 06/12/19 08:40 Flush - Normal Saline IVF Not Given Q12HR CHUCK Temazepam 15 mg 06/10/19 16:39 06/11/19 20:54 Restoril PO 15 mg HSPRN PRN Administration Insomnia - Exam General Appearance: awake alert Eye: PERRL, anicteric sclera ENT: no oropharyngeal lesions, moist mucosa Neck: supple, no JVD Heart: RRR, no murmur Respiratory: no wheezes, no rales Gastrointestinal: soft, non-tender, non-distended, normal bowel sounds Extremities: no cyanosis, 1+ LE edema Neurological: cranial nerve grossly intact, no focal deficits Psychiatric: normal affect, A&O x 3 Hosp A/P (1) Left breast abscess Code(s): N61.1 - ABSCESS OF THE BREAST AND NIPPLE Status: Acute (2) Obesity (BMI 30-39.9) Code(s): E66.9 - OBESITY, UNSPECIFIED Status: Chronic (3) Sepsis Code(s): A41.9 - SEPSIS, UNSPECIFIED ORGANISM Status: Acute (4) Viral syndrome Status: Acute - Plan hemostable will switch clinda and levaquin to oral, dc iv fluids encourage po intake, to amb as tolerated in room dc plan per gen surg adv, may need to learn to do dressing changes viral pcr +ve for human metapneumovirus, -ve covid
[2019-06-12] MEDS: Famotidine 20 MG TAB PO SCH (21:46)
[2019-06-12] MEDS: Temazepam 15 MG CAP PO PRN (21:46)
[2019-06-12] MEDS: Clindamycin 150 MG CAP PO SCH (21:46)
[2019-06-13] MEDS: Clindamycin 150 MG CAP PO SCH (05:42)
[2019-06-13] MEDS: Ondansetron PF 4 MG/2 ML Vial IVP PRN (07:39)
[2019-06-13] MEDS: Famotidine 20 MG TAB PO SCH (09:21)
[2019-06-13] MEDS: Saccharomyces boulardii 250 MG CAP PO SCH (09:22)
[2019-06-13] MEDS: guaiFENesin ER 600 MG TAB PO SCH (09:22)
--- NOTE | 2019-06-13 09:49 | PRG ---
DATE OF SERVICE: 06/13/2019 SUBJECTIVE: Ms. Perez is doing well. She notes pain in the area. No more fevers. OBJECTIVE: On exam, her dressings were peeled back to reveal the erythema has improved. Dressings are left in place. ASSESSMENT: Left breast abscess. PLAN: Home on Levaquin, clindamycin, [place], and Zofran, already sent those over to [facility] on wound care is going to show her how to do the dressing change and she is going to video it for her . I want them to come back and see me in a week from this coming Friday. She has my cellphone for any questions. Job ID: [id number]
[2019-06-13] MEDS ORDERED: Ondansetron ODT 4 MG TAB PO SCH (10:00)
[2019-06-13] MEDS: HYDROcodone/Acetaminophen 7.5/325 mg Tablet PO PRN (10:26)
[2019-06-13 11:39] VITALS: BP 112/75; TEMP 97.8
--- NOTE | 2019-06-14 13:02 | DIS ---
DATE OF ADMISSION: 06/09/2019 DATE OF DISCHARGE: 06/13/2019 DISCHARGE DISPOSITION: Home. PRIMARY DISCHARGE DIAGNOSES: 1. Left breast abscess, status post incision and drainage. 2. Sepsis. 3. Viral syndrome with upper respiratory infection and positive for human metapneumovirus. 4. Obesity. PROCEDURES DONE DURING HOSPITALIZATION: Chest x-ray done showed no acute infiltrate. Left breast ultrasound done showed large nonencapsulated abscess centered at the 10 o'clock position on the left breast. Blood cultures x2, no growth. Influenza A and B antigens were negative. Respiratory virus panel PCR was positive for human metapneumovirus. Breast abscess cultures at 48 hours showed no growth. Had a white count of 14 on the day of admission with 85% neutrophils and 4% bands. test was negative. BUN 10, creatinine 0.7. COVID-19 PCR was negative. Hepatitis panel was negative. DISCHARGE PLAN: The patient to follow up with Dr. Roxie Hernandez, her primary care physician in 1 week. She also needs to follow up with Dr. Moore on 06/23/2019. BRIEF COURSE DURING HOSPITALIZATION: The patient initially got admitted on the with complaints of generalized body aches, pain, and fever. She also was exposed to likely viral infection in her 2 children a week prior to arrival here. She had also complained of left breast pain and was found to have had an abscess. The patient has had cadet-cultures done along with coronal virus COVID-19 testing as well in view of presenting symptoms. Her COVID test was negative. She was evaluated by Dr. Moore and has had incision and drainage of the left breast abscess done. She needs to follow up with him on the June 22. The patient has been taught dressing changes and her will help her do the dressings. Please note, I have seen and examined the patient on the day of discharge. DISCHARGE MEDICATIONS: Clindamycin 600 mg p.o. 3 times daily for 9 days, Levaquin 500 mg p.o. daily for 9 days, Zofran p.r.n., [place] p.r.n. for pain, vitamin 1 tablet daily. ALLERGIES: TO CEFTRIAXONE AND LATEX. Job ID: [id number]
== END 2019-06-13 12:20 | disposition home or self-care (01) | DRG 855 ==
LOC: ERS 20:02 → 2NO 23:55 → T4-A 06-11 13:51
PROVIDERS: ADMIT Internal Medicine; ATTEND Internal Medicine
PROC: 0J960ZZ Drainage of Chest Subcutaneous Tissue and Fascia, Open Approach (ICD-10-PCS; principal; 2019-06-12)
DX: A41.9 Sepsis, unspecified organism (principal); N61.1 Abscess of the breast and nipple; E66.9 Obesity, unspecified; M19.90 Unspecified osteoarthritis, unspecified site; Z91.040 Latex allergy status; Z90.49 Acquired absence of other specified parts of digestive tract; Z88.1 Allergy status to other antibiotic agents; Z68.35 Body mass index [BMI] 35.0-35.9, adult; B97.81 Human metapneumovirus as the cause of diseases classified elsewhere; J06.9 Acute upper respiratory infection, unspecified
CPT/HCPCS: 36415; 71045; 80053; 80074; 81003; 83605; 83690; 84703; 85025; 87040; 87070; 87205; 87633; 87798; 87804; J0456; J0696; J1200; J1650; J1956; J2001; J2060; J2250; J2270; J2405; J2704; J3010; J3490; Q0162; Q0163; S0020; S0028; U0001

== ENCOUNTER 2020-01-06 15:57 | Outpatient (CLI) | payer BC ==
--- NOTE | 2020-01-06 16:51 | ULT ---
EXAM: Pelvic ultrasound HISTORY: Left lower quadrant pain in a female COMPARISON: None TECHNIQUE: Multiple grayscale and color Doppler images were obtained in a transabdominal pelvic ultra sound. Spectral analysis of the Doppler waveforms of the ovaries were performed. FINDINGS: UTERUS: There is an intrauterine gestational sac. This contains a yolk sac and pole. [place]-rump length: 18.76 millimeters which estimates gestational age at 8 weeks 3 days. A heart rate is detected at 147 bpm. No evidence of subchorionic hemorrhage. No free fluid is seen in the pelvis. RIGHT OVARY: Normal flow without focal mass. LEFT OVARY: Normal flow without focal mass. A dominant follicle is seen in the left ovary. IMPRESSION: Single live intrauterine with estimated age of 8 weeks 3 days.
== END 2020-01-06 15:58 | disposition home or self-care (01) ==
LOC: BICULT 15:57
PROVIDERS: ATTEND Family Medicine
DX: Z34.81 Encounter for supervision of other normal pregnancy, first trimester (principal); R10.32 Left lower quadrant pain; Z3A.08 8 weeks gestation of pregnancy
CPT/HCPCS: 76856